=== PATIENT | female | born 1965 | race Caucasian/White ===

== ENCOUNTER 2017-01-16 10:35 | Inpatient (IN) | payer MEDICARE, MEDICAID ==
[~2017-01-16] VITALS: Ht 167.6 cm; Wt 41.2 kg
--- NOTE | ~2017-01-16 | NDGEN ---
PATIENT'S NAME: VERONICA FREITAS [facility] AGE: 51 Y [address] ROOM: [address] [address] [place] [facility] [place]: 01/17/2017 Neurodiagnostics DISCHARGE DATE: FAMILY PHYSICIAN: PHYSICIAN, NO ATTENDING PHYSICIAN: CHAY ALVARADO PROCEDURE: ELECTROENCEPHALOGRAM DATE OF PROCEDURE: 01/19/2017 10:25am TYPE OF STUDY: EEG. INDICATIONS: This is a 51-year-old patient with a suicidal ideations and likely alcohol intoxication with withdrawal. The patient was confused and poorly compliant with 20-lead EEG which was done with photic stimulation. There was extensive movement artifact throughout much of the 20 minute study especially head movement throughout and frontal lead obscuration was present. However, in posterior and central leads, the background rhythm was best evaluated. There was normal background rhythm of 10 hertz alpha seen in the symmetric leads throughout and remained stable throughout the recording. There was no epileptiform features seen and no seizures were recorded. IMPRESSION: Poor study due to extensive patient movement; however, this is a normal study overall. MD SANJANA CUNNINGHAM/tk /[id number] dtt: 02/03/17 1546 , SURJIT GRANGER dtd: 01/23/17 1056
--- NOTE | ~2017-01-16 | ER ---
PATIENT'S NAME: ADELA FREITAS [facility] AGE: 51 Y [address] ROOM: [place] [address] [place] [facility] [place]: 01/16/2017 ER/Outpatient Report DISCHARGE DATE: FAMILY PHYSICIAN: PHYSICIAN, UNKNOWN ATTENDING PHYSICIAN: CHAY ALVARADO time of arrival: 1035. Time seen: 1037. IDENTIFICATION: A 51-year-old female. CHIEF COMPLAINT: Altered mental status. HISTORY OF PRESENT ILLNESS: The patient is a 51-year-old female who was sent over from [facility] for increasing confusion, not eating or drinking in the last 2 days. She was admitted on 01/14, after being evaluated at [facility] for depression, alcohol abuse, posttraumatic stress, and suicidal ideation. The patient apparently had a head CT according to records, but I do not see an actual report while she was in [place]. I do see medical clearance lab work and then she was taken to [facility] under an EPC from [facility]. She has progressively declined since admission to [facility]. Adela answers an occasional question, her speech is garbled and difficult to understand. So, history is not really obtained from her. ALLERGIES: POSSIBLY TO MORPHINE ACCORDING TO THE PARAMEDICS. ADELA DID CONFIRM THAT, THAT IS TRUE. CURRENT MEDICATIONS: According to Isabel Corral's H and P at [facility], her admit medications include: 1. Keppra 500 mg b.i.d. 2. Neurontin 600 mg daily. 3. Trazodone 200 mg daily. 4. Effexor XR 150 mg daily. Her [facility] medications look to include: 1. Tylenol p.r.n. 2. Mylanta p.r.n. 3. Carmex. 4. Colace. 5. Famotidine p.r.n. 6. Folic acid 1 mg daily. 7. Hydroxyzine p.r.n. 8. Levetiracetam 500 mg b.i.d. PATIENT'S NAME: ADELA FREITAS [facility] AGE: 51 Y [address] ROOM: [place] [address] [place] [facility] [place]: 01/16/2017 ER/Outpatient Report DISCHARGE DATE: FAMILY PHYSICIAN: PHYSICIAN, UNKNOWN ATTENDING PHYSICIAN: CHAY ALVARADO 9. Lorazepam per alcohol withdrawal scoring and she did receive 1 mg p.o. this morning. 10. Milk of magnesia. 11. Bacitracin p.r.n. 12. Pantoprazole 40 mg daily. 13. Sudafed p.r.n. 14. Thiamine 100 mg daily. 15. She received a dose on the and I believe again on the . 16. Cepastat throat lozenges p.r.n. MEDICAL PROBLEMS: Seizure disorder with history of withdrawal seizures, possible history of traumatic brain injury, depression, alcohol abuse, PTSD. SOCIAL HISTORY: I believe, the patient is [place] but I am unable to confirm that with her. Tobacco use: Records reflect a history of one pack per day. Alcohol use: Daily, but I am unable to quantify how much. Her last drink was on the . Drug use: Denies. FAMILY HISTORY: Positive for heart disease according to records. REVIEW OF SYSTEMS: Unable to obtain from the patient. PHYSICAL EXAMINATION: VITAL SIGNS: Weight 41.6 kg. Blood pressure 124/88, pulse 90, respirations 14, temp 96.9, sats 100% on room air. GENERAL: A 51-year-old female, in no acute distress. The patient is cachectic and appears much older than her stated age. HEENT: Head: Normocephalic, atraumatic. Ears: TMs translucent both ears. Eyes: Pupils equal and reactive to light and accommodation. Extraocular movements intact. Nose: Mucosa pink. No lesions or drainage. Mouth: No lesions. Pharynx benign. NECK: Supple. No lymphadenopathy. No thyromegaly. No JVD. LUNGS: Clear to auscultation. Breath sounds are equal. No rhonchi, wheezes, or rales. HEART: Regular rate and rhythm. No murmur, rub, or gallop. ABDOMEN: Bowel sounds present. Soft, nondistended. No hepatosplenomegaly. PATIENT'S NAME: ADELA FREITAS [facility] AGE: 51 Y [address] ROOM: [place] [address] [place] [facility] [place]: 01/16/2017 ER/Outpatient Report DISCHARGE DATE: FAMILY PHYSICIAN: PHYSICIAN, UNKNOWN ATTENDING PHYSICIAN: CHAY ALVARADO No palpable masses. Nontender. SKIN: [place], warm, and dry. No lesions or rashes noted. NEURO: The patient is alert, but she is not oriented to person, place, or time. Cranial nerves 2 through 12 grossly intact. Motor strength 5/5 throughout. Sensation appears to be intact to light touch. The patient has a fine tremor. The other thing she has is extremely dry skin, her mucous membranes are dry, her skin turgor is abnormal. Records from [facility], [facility] were reviewed. LABORATORY DATA: Labs here: Hemoglobin 13.5, hematocrit 39.1, platelets 171, white count 5.8. INR 1.0. Ammonia level less than 10. She had a chemistry panel done this morning at 0742; sodium 135, potassium 3.2, chloride 96, CO2 of 24, BUN 21, creatinine 0.6, blood sugar 83, liver enzymes normal. GGT 570. Phenytoin 0.7, vitamin B12 1178. Folate 93.8. Labs from [facility] 01/14/2017; salicylate level 2.5. Hemoglobin at that time 14.6, hematocrit 40.5, platelets 186, white count 5.9. Free T4 1.22. test was negative. Sodium 132, potassium 3.1, chloride 91, CO2 24, BUN 18, creatinine 0.7, blood sugar 87. Liver enzymes normal. Magnesium 1.9. Dilantin 0.6, acetaminophen less than 2, alcohol level 0.004. TSH 2.800. EKG; normal sinus rhythm at 94 beats per minute. No acute ST elevation or depression and that was from the . UA at that time was negative and urine drug screen on the was also negative. Patient reportedly had a negative head CT. UA was ordered today, but not obtained while she was in the emergency room. CT of the head without contrast; mild to moderate atrophy greater than expected for age, otherwise, negative per Dr. Parisi, radiologist. IMPRESSION AND PLAN: 1. Altered mental status. 2. Alcohol withdrawal. 3. History of seizures including alcohol withdrawal seizures, currently on Keppra. 4. Depression with suicidal ideation. The patient did state she is still actively suicidal. 5. Hypokalemia. 6. Plan for admission per Dr. Alvarado for alcohol detox and further evaluation of altered mental status. The patient needs to be a one-on-one for suicidal precautions and patient remained hemodynamically stable throughout her stay here in the emergency room and was admitted to the PATIENT'S NAME: ADELA FREITAS [facility] AGE: 51 Y [address] ROOM: [address] [address] [place] [facility] [place] DATE: 01/16/2017 ER/Outpatient Report DISCHARGE DATE: FAMILY PHYSICIAN: PHYSICIAN, UNKNOWN ATTENDING PHYSICIAN: CHAY ALVARADO floor at 1232 with blood pressure 113/72, pulse 81, respirations 20, temperature 98, and saturations 100% on room air. KENDRA CHRISTIANSON MD CAR/modl /[id number] d: 01/17/1750 t: 01/22/17 1511, OUTPATIENT REPORT
--- NOTE | ~2017-01-16 | HP ---
PATIENT'S NAME: NAVIN FREITASI Joe [facility] AGE: 51 Y [address] ROOM: [address] [address] [place]: [facility] [place] ADMIT DATE: 01/16/2017 History & Physical DISCHARGE DATE: FAMILY PHYSICIAN: PHYSICIAN, UNKNOWN ATTENDING PHYSICIAN: CHAY ALVARADO DATE OF SERVICE: CHIEF COMPLAINT: Suicidal ideation and history of alcohol use disorder and history of seizure disorder and decreased oral intake. HISTORY OF PRESENT ILLNESS: This is a 51-year-old female transferred here from [facility] for higher level of care for the concern of alcohol withdrawal and seizure disorder as well as depression with suicidal ideation and decreased oral intake. The patient currently does not want to speak and is a very poor historian. She is alert and oriented x3, but due to her underlying depression, the patient is a very poor historian and does not really give me much information about why she is here or how she is feeling. Based on what I could get from the ER physician where she got the sign-out from [facility], the story is that the patient has been staying at [facility] because of suicidal ideation, and she also had a history of alcohol use disorder. It is not clear when was the last drink because the patient would not tell us the answer, but she also has a history of a seizure disorder, not sure when was the last time she had a seizure. Because of the decreased oral intake and concern for alcohol withdrawal and seizure disorder, the patient was sent over here for higher level of care. On my examination, the patient looks dry and dehydrated and is not in distress. There is no finding to suggest withdrawal at the moment. The patient is not hungry and does not want to eat or take any oral pills at the moment. She does accept to give her IV fluids. No further history could be obtained from the patient given that the patient does not like to talk and refused to answer any questions also. REVIEW OF SYSTEMS: As mentioned in the history of present illness. All other systems reviewed and negative except those mentioned in the history of present illness. PAST MEDICAL HISTORY: 1. Major depressive disorder. 2. Alcohol use disorder. 3. Posttraumatic stress disorder. 4. Seizure disorder. 5. Multiple psychiatric admissions in the past for suicidal ideation and attempts at [facility]. [facility]: [facility]GE[facility] 51 Y [address] ROOM: [place] [address] LOCATION: [facility] [place] ADMIT DATE: 01/16/2017 History & Physical DISCHARGE DATE: FAMILY PHYSICIAN: PHYSICIAN, JAKOB ATTENDING PHYSICIAN: CHAY ALVARADO ALLERGIES: NO KNOWN DRUG ALLERGIES. HOME MEDICATIONS: Currently is being reconciled. SOCIAL HISTORY: Cannot be obtained from the patient given that she does not want to talk right now. Based on the records from [facility], she denies any alcohol or any illegal drug use. The patient is described as alcohol use disorder patient, however there is no documentation about how much and how often in the chart. FAMILY HISTORY: Patient does not answer questions and does not want to talk. Based on the medical records from [facility], I could not find information about her parents. PAST SURGICAL HISTORY: The patient does not answer questions and does not want to talk. Could not find any documentation about past surgical history from the [facility] records. PHYSICAL EXAMINATION: VITAL SIGNS: At the time of my dictation, temperature 95.1, heart rate 81, respirations 20, blood pressure 101/38, saturation 99% on room air. Pain 0/10. GENERAL APPEARANCE: The patient looks frail and cachectic and appears to be older than her stated age. In no acute distress. Patient does not answer questions most of the time, but she is alert and she is oriented x3. She just does not want to talk. HEENT: Pupils are equally round and reactive to light. Extraocular muscles intact. Anicteric sclerae. Nasal turbinates are normal bilaterally. Dry oral mucosa. No oral thrush. NECK: No JVD. No cervical lymphadenopathy. No neck stiffness. CARDIOVASCULAR: Regular rate and rhythm. Normal S1, S2. No murmur. No rubs, no gallops. RESPIRATORY: Clear. ABDOMEN: Soft, nontender, nondistended. Normal bowel sounds. No hepatosplenomegaly. EXTREMITIES: No edema in upper or lower extremities. NEUROLOGIC: Cannot perform a full neurological assessment given that the patient does not want to follow commands and does not want to talk. However, grossly nonfocal as the patient is alert and oriented x3. PATIENT'S NAME: VERONICA FREITAS [facility] AGE: 51 Y [address] ROOM: [place] [id number] LOCATION: [facility] [place] ADMIT DATE: 01/16/2017 History & Physical DISCHARGE DATE: FAMILY PHYSICIAN: PHYSICIAN, UNKNOWN ATTENDING PHYSICIAN: CHAY ALVARADO SKIN: No ulcer. No rash. No cyanosis. MUSCULOSKELETAL: No joint pain. No muscle pain. Range of motion intact. GENITOURINARY: Not examined given that it is not related to this admission. LABORATORY DATA: Ammonia less than 10. White blood cell 5.8, hemoglobin 13.5, hematocrit 39.1, MCV 99.2, platelet 171. Glucose 83, BUN 21, creatinine 0.6, sodium 135, potassium 3.2, chloride 96, CO2 24, calcium 9.4. Total protein 7.0, albumin 3.3, AST 239, ALT 36, alkaline phosphatase 116, total bilirubin 1. Anion gap 18.2, globulin 3.7, GFR more than 60. Phenytoin 0.7, INR 1.0, PTT 25. GGT 570. Vitamin B12 1178. Folic acid 93.8. IMAGING STUDY: CT of the brain without contrast on admission showed no acute finding. Cerebral atrophy. No hemorrhage. No mass. No fracture. ASSESSMENT/PLAN: 1. Major depressive disorder with suicidal ideation: Continue with suicide precautions. One-to-one sitter in the room at all times. Currently, her medication list is being reconciled. We will continue with antidepressant medication. If she is on any at home and at [facility]. Once the patient goes back to [facility], over there, they can continue with depression and suicidal treatment. 2. Regarding her history of alcohol use disorder: Currently, the CIWA score is 0. There is no asterixis. It is not clear when was the last drink because the patient does not answer my questions right now. I will put her on the CIWA protocol and give her p.o. Ativan p.r.n. according to the CIWA score. 3. Regarding her history of seizure disorder: Continue home medication. It is believed that she is on Keppra, but currently the medication list is being reconciled. I will put her on IV Ativan 2 mg q.5 minutes p.r.n. if she goes into active seizure. There is no need to check EEG because she never had a documented or witnessed seizure therefore I do not think it is cost effective at this point. I will get a prolactin to be added on to today's lab. The patient will be on seizure precautions. 4. Regarding her decreased oral intake: I will give her IV fluids with D5 water with normal saline and 20 mEq of potassium chloride for maintenance for hydration. She does not want to take oral potassium therefore I will give her the potassium with IV fluids. Encourage oral intake. She can be on a regular diet. I will consult Nutrition. Give her Ensure one can t.i.d. with meals. 5. Agitation: I will put her on delirium protocol. I will also check UA again. It was negative from the [facility] few days ago, but I want to check again to make sure we do not miss anything. I will also check another urine drug screen including alcohol level and Tylenol and PATIENT'S NAME: VERONICA FREITAS [facility] AGE: 51 Y [address] ROOM: [place] [address] LOCATION: [facility] [place] ADMIT DATE: 01/16/2017 History & Physical DISCHARGE DATE: FAMILY PHYSICIAN: PHYSICIAN, UNKNOWN ATTENDING PHYSICIAN: CHAY ALVARADO aspirin levels. Those were checked at [facility], but the reason why they sent the patient here is because of agitation therefore I want to make sure we can have another urine drug screen and also alcohol and Tylenol and aspirin levels. 6. Further plan depends on clinical course. Time spent on the day of admission 35 minutes including chart review, interviewing and examining the patient, and addressing all the questions and concerns that the patient had. I also went over the plan of care with the nurse. CHAY ALVARADO MD CC/modl /[id number] D: T: HISTORY & PHYSICAL
--- NOTE | ~2017-01-16 | CON ---
PATIENT'S NAME: VERONICA FREITAS [facility] AGE: 51 Y [address] ROOM: [id number] [place], [place] [address] [place] [facility] [place]: 01/17/2017 Consultation DISCHARGE DATE: FAMILY PHYSICIAN: PHYSICIAN, NO ATTENDING PHYSICIAN: CHAY ALVARADO REFERRING PHYSICIAN: DIDI Arredondo HISTORY OF PRESENT ILLNESS: This 51-year-old lady is referred for rehab evaluation and admission, was admitted to [facility] on 01/17/2017, transferred from [facility] for further care. She was status post alcohol withdrawal, depression with confusion and possible seizure disorder, as well as suicidal ideation lately with decreased food intake also. She is not able to tell me much during my examination. Practically, she answers every other question with (I do not know). She is always, if left alone, curled on the left side. Alert, not oriented to place, time, person, and status really. She can follow instructions, but she is very much unable to follow multiple stage instructions, but she can follow one or two stage instructions. She denied having any visual difficulty. No dizziness. She can comprehend, but usually will require two or three times repetition before she will act once. She avoided eye contact throughout my examination and she kept answering practically to most of my questions by "I do not know." She feels that her stomach is upset on and off. No vomiting at the present time. She reports she has good bowel and bladder control. She admits smoking one pack a day. She admits to drinking and she is not specifically tell me how much, but she does drink regularly and hard liquor. She barely is able to stay in contact with me. If left alone, she will curl again to the left side and close her eyes. She could move all four. Muscle strength throughout is about 4- to 4/5. Neurologically, she is intact. Deep tendon reflexes present and equal. She has good bowel and bladder control. Sensation is within normal limits. PHYSICAL EXAMINATION: VITAL SIGNS: Blood pressure 111/76, temperature 97.7, pulse 88, respirations 16. She is 5 feet 6 inches tall and weighs 141.6 kg. LUNGS: Clear clinically. HEART: Regular sinus rhythm. ABDOMEN: Soft. HEENT: Her voice is clear and not wet. Soft palate and tongue are moving symmetrical. There is no visual cut and/or facial droop that I could detect. Her voice remained clear throughout the exam. PATIENT'S NAME: VERONICA FREITAS [facility] AGE: 51 Y [address] ROOM: [address] [place], [place] [address] [place] [facility] [place]: 01/17/2017 Consultation DISCHARGE DATE: FAMILY PHYSICIAN: PHYSICIAN, NERY ATTENDING PHYSICIAN: CHAY ALVARADO She is on the following medications. 1. Tylenol. 2. Mylanta. 3. NaCl 0.9%. 4. Seroquel. 5. Ativan. 6. Lovenox. 7. Effexor. 8. Keppra. 9. Gabapentin. 10. Pepcid. 11. Mag oxide 400. 12. Haldol. 13. Lopressor. 14. Catapres. 15. Folic acid. 16. Thiamine. 17. Multivitamin. This lady could ambulate 200 feet x1 and 150 x1 with minimum rehabilitation assistant of two handheld, realistically only for stability. I feel that this lady is doing well. However, she requires to have things puts in good order for her, so she can recover. I would suggest a neuro-psych evaluation for her and also I will caution that she is at high risk of falling and needs hands-on always. She needs also not to drive until she is re-evaluated. Probably for the time being while placement is seek to put her in skilled unit for awhile and placement should be looked for safety. I will continue to follow alongside with you. Thank you for this referral. I did explain all what I just dictated to her, she verbalized understanding. MD PANFILO SAUCEDA/tk /[id number] P d: 01/23/17 1214 t: 01/26/17 0912, CONSULTATION REPORT
--- NOTE | ~2017-01-16 | DS ---
PATIENT'S NAME: [facility] AGE: 51 Y [address] ROOM: [id number] [place], [place] [address] LOCATION: [facility] ADMIT DATE: 01/17/2017 Discharge Summary DISCHARGE DATE: 02/05/2017 FAMILY PHYSICIAN: PHYSICIAN, NO ATTENDING PHYSICIAN: Alek Adnres FINAL DIAGNOSES: 1. Wernicke's encephalopathy. 2. Alcohol abuse and dependence. 3. Severe protein-calorie malnutrition. 4. Major depressive disorder. 5. Posttraumatic stress disorder. 6. Seizure disorder. 7. Deconditioning. HISTORY OF PRESENT ILLNESS: Please see the admission history and physical for details. In short, the patient was admitted from [facility] after she had presented there for depression. On admission, she was noted to be having significant withdrawal symptoms. LABORATORY DATA: On admit, sodium 135, it remained stable, it was 142, most prior to discharge, potassium on admission was 3.2, got as low as 3, most prior discharge 3.9, CO2 on admission was 24, BUN on admission was 21, discharge 14, creatinine on admission was 0.6, discharge 0.5, alk phos on admission was 116, AST 39, ALT 36, GGT 57, Dilantin on admission was 0.7, prealbumin on admission was 10. Her salicylate normal, on admission was less than 2.8. Vitamin B12 was 1178, folate 93.8. TSH 3.69. On admission, white blood cell count 5.8, hemoglobin 13.5, hematocrit 39.1, platelet count 171, most prior to discharge, her hemoglobin was 11.7, pro-time on admission was 10.9 with an INR of 1. Procalcitonin on admission was 0.19. Urinalysis on admission was positive for nitrites, she had 20-50 whites. X-RAY DATA: CT scan of the head done on admission did not show any acute changes. Repeat CT scan of the head with contrast did not show any significant change. HOSPITAL COURSE: The patient was admitted for acute mental status changes. It was felt to be alcohol withdrawal. She was admitted to the hospital at [facility]. She was evaluated for infection. She was given D5 saline. She was also given Ativan for withdrawal. She was also given the appropriate vitamin replacement. She was put on the acute delirium protocol and was treated according to that as well as the [facility] protocol. CT scans were negative. It was felt that she was at severe nutritional compromise; so, the dietitian did see her. It was felt that she probably had Wernicke's encephalopathy. She was given IV thiamine for a total of 7 days. During this PATIENT'S NAME: [facility]ICA [facility] AGE: 51 Y [address] ROOM: [place] [address] LOCATION: [facility] ADMIT DATE: 01/17/2017 Discharge Summary DISCHARGE DATE: 02/05/2017 FAMILY PHYSICIAN: PHYSICIAN, NERY ATTENDING PHYSICIAN: Alek Andres timeframe, she had altering levels of alertness. There was concern about if she would be able to return to [facility]. She was unfortunately not able to walk independently and did require significant help. PT, OT did continue to work with her. Dr. Rodrigues did see her. It was felt that she would not be able to return to [facility]. We did start looking into other options. Because of her condition, it was very difficult to get her placed. We did work toward getting her temporary guardianship as it was felt that she did not have the capacity to make her own decisions. Once we were able to get the guardianship, she was able to be discharged to [facility]. DISCHARGE INSTRUCTIONS: She is discharged. She is to have diet as tolerated. She is to have health supplement as needed. She have PT, OT, and Speech therapy. MEDICATIONS: 1. Mag oxide 400 mg daily. 2. Megace 800 mg daily to try and stimulate her appetite. 3. Theragran 1 tablet daily. 4. Nicotine patch 14 mg daily. 5. Potassium 20 mEq twice daily. 6. Effexor XR 150 mg daily. 7. Seroquel 12.5 mg twice daily to hold if she is oversedated. 8. Thiamine 100 mg daily. 9. Tylenol 650 mg every 4 hours as needed for headache. 10. Mylanta 30 mL every 6 hours as needed for indigestion. PROGNOSIS: Overall, prognosis at discharge was fair. NOAH TOLENTINO MD LAW/modl /[id number] d: 02/06/17 0058 t: 02/18/17 1642, DISCHARGE SUMMARY
[~2017-01-16 10:35] MED LIST: EFFEXOR XR150 MG PO; KEPPRA500 MG PO; NEURONTIN300 MG PO; TRAZODONE HCL100 MG PO
[2017-01-16 11:39] LABS: BASOPHIL % 0.5 %; HEMATOCRIT 39.1 % (33.0-46.0); HEMOGLOBIN 13.5 g/dL (10.0-15.0); IMMATURE GRANULOCYTE % 0.5 %; LYMPHOCYTE # 1.6 K/uL (0.8-4.0); LYMPHOCYTE % 26.6 %; MCH 34.3 pg (27.0-34.0); MCHC 34.5 gm/dL (32.0-36.5); MCV 99.2 fl (83.0-98.0); MONOCYTE # 0.6 K/uL (0.0-1.0); MONOCYTE % 10.1 %; NEUTROPHIL # (ANC) 3.6 K/uL (1.8-7.8); NEUTROPHIL % 62.3 %; NRBC % 0.3 /100WBC (0-0.00); PLATELET COUNT 171 K/uL (150-450); RBC 3.94 M/uL (3.50-5.50); RDW-CV 11.9 % (11.9-14.6); WBC 5.8 K/uL (4.0-11.0)
[2017-01-16 11:49] LABS: PROTIME 10.9 SECONDS (9.6-11.1); PTT 25 SECONDS (25-32)
--- NOTE | 2017-01-16 13:43 | NUR ---
Pt is 51 y/o female admit for altered mental status/suicidal ideations/ alcohol withdrawal for hospitalist. PT is very lethargic and occasionally does not answer questions appropriately when she is awake enough to answer. Pt has a staff member sitting with her at all times currently. Came from [facility]. Hx htn,hypercholest,COPD,SOB,cough,gerd,anxiety,major depressive disorder, PTSD,suicidal ideations/attempt,ETOH abuse. Pt lives at home with her according to an H&P on her chart. Possible hx traumatic brain injury. Unable to ask pt about this at this time. Allergy to morphine. Red and yellow bracelet on.
--- NOTE | 2017-01-16 18:21 | NUR ---
Significant Event: Patient is on suicide precautions with a 1:1 sitter. Oriented to self but disoriented to time/place. When asked if she had thoughts of harming herself or others, patient stated "shove it up your ass." Patient later around 1615 did ask where she was and was told where she was and that she came over from [facility] for dehydration. When asked if she needed anything she stated that she was just "fucking cold". Patient then went back to sleep. Patient has not been up to the bathroom since arrival at 1250. Did start IV fluids per orders. Patient has not been alert enough to eat or drink anything or take any pills. Follow up: Continue to monitor.
[2017-01-16 22:25] LABS: BLOOD URINE 10 /UL (NEGATIVE); GLUCOSE URINE NEGATIVE (NEGATIVE); KETONE URINE 50 mg/dL (NEGATIVE); LEUKOCYTES URINE 500 /UL (NEGATIVE); NITRITE URINE POSITIVE (NEGATIVE); PROTEIN URINE 30 mg/dL (NEGATIVE); SPEC GRAVITY URINE 1.025 (1.003-1.035); UROBILINOGEN URINE 4 mg/dL (NORMAL)
[2017-01-16 22:43] LABS: COLOR URINE AMBER (YELLOW); TURBIDITY URINE 1+ (CLEAR)
[2017-01-16 22:44] LABS: RBC URINE 0-2 #/HPF (NEGATIVE); WBC URINE 20-50 #/HPF (NEGATIVE)
[2017-01-16 22:45] LABS: AMORPHOUS URINE 1+ (NEGATIVE); BACTERIA URINE FEW (NEGATIVE); EPITHELIAL URINE 20-50 #/HPF (NEGATIVE); MUCUS URINE 3+ (NEGATIVE)
[2017-01-16 22:56] LABS: BARBITURATE NEGATIVE (NEGATIVE); COCAINE NEGATIVE (NEGATIVE); OPIATES NEGATIVE (NEGATIVE)
[2017-01-16 22:58] LABS: AMPHETAMINE NEGATIVE (NEGATIVE)
--- NOTE | 2017-01-17 04:53 | NUR ---
Significant Event: Pt very withdrawn. Quiet and doesn't answer most questions. Beginning of shift the only thing she said was "I'm cold". Second assessment pts stomach hurt, pt voided and has been comfortable since. VSS. afebrile. Refused to eat anything all shift. ONly drank about 200mls H2o and that was with encouragement. Two assist to bedside commode with gait belt and she is very unsteady. Continue 1:1 monitoring. Follow up:
[2017-01-17 05:35] LABS: BLOOD UREA NITROGEN 16 mg/dL (6-24); CALCIUM 8.5 mg/dL (8.5-10.5); CHLORIDE 107 mMol/L (96-110); CO2 21 mMol/L (22-32); CREATININE 0.5 mg/dL (0.5-1.1); ESTIMATED GFR (MDRD EQUATION) > 60
[2017-01-17 05:44] LABS: SODIUM 142 mMol/L (135-145)
--- NOTE | 2017-01-17 13:42 | NUR ---
CONSULT FOR DECREASED APPETITE RECEIVED. FULL NUTRITION ASSESSMENT DONE ON 01/16, [facility] ATTEMPTED TO VISIT PT YESTERDAY BUT HAS SITTER AND WAS TOLD NOT APPROPRIATE TO VISIT. REFUSED X3 MEALS. REFUSED MEALS AT TIMES OVER AT [facility]. ALCOHOL WITHDRAWAL, LETHARGIC, NOT ALERT ENOUGH TO EAT PER SHIFT REPORT. SPOKE TO SITTER THIS AFTERNOON, PT HAD 50% OF BREAKFAST THIS MORNING AND NOTHING FOR LUNCH. DID TRY ALL KINDS OF ENSURE YESTERDAY, LIKES ENSURE COMPACT BETTER. WILL CHANGE ENSURE ENLIVE TO ENSURE COMPACT BID AND MAGIC CUP ONCE DAILY. IF ENTERAL NUTRITION IS DESIRED, RECOMMEND JEVITY 1.5 AT 45ML/HR WITH 35ML/HR WATER FLUSHES TO PROVIDE 1620 KCAL, 69 GRAMS PROTEIN, 821ML FREE WATER. WILL FOLLOW.
--- NOTE | 2017-01-17 17:34 | NUR ---
Oriented to self. IV to LW infusing w/out complication. Tolerating regular diet well. Drinking well, though needs encouragement. Up w/1-2 assist, GB, walker. Very unsteady and weak. Had fall this shift. Jumped up to go to BR. Can't bear own weight well. Small slight abrasion to R)elbow. MD notified.
[2017-01-17 21:55] LABS: MAGNESIUM 1.8 mg/dL (1.3-2.6); POTASSIUM 3.3 mMol/L (3.7-5.1)
--- NOTE | 2017-01-18 04:36 | NUR ---
Significant Event: Pt oriented to self only. Confused. Follows few simple commands. Up with two assist to BSC. Very weak. WILLEM this morning. CT scan last night. K+ IV replacement. Banana Bag hanging. Cont on 1:1 monitoring. Possible Dobhoff placement in morning if pt not eating. Follow up: Cont to monitor
[2017-01-18 05:52] LABS: BASOPHIL % 0.7 %; EOSINOPHIL % 0.5 %; HEMATOCRIT 32.2 % (33.0-46.0); IMMATURE GRANULOCYTE % 0.5 %; LYMPHOCYTE # 2.1 K/uL (0.8-4.0); LYMPHOCYTE % 47.4 %; MCH 34.3 pg (27.0-34.0); MCHC 34.2 gm/dL (32.0-36.5); MCV 100.3 fl (83.0-98.0); MONOCYTE # 0.4 K/uL (0.0-1.0); MONOCYTE % 8.7 %; MPV 10.3 fl (9.4-12.4); NEUTROPHIL # (ANC) 1.8 K/uL (1.8-7.8); NEUTROPHIL % 42.2 %; NRBC % 0.9 /100WBC (0-0.00); PLATELET COUNT 177 K/uL (150-450); RBC 3.21 M/uL (3.50-5.50); RDW-CV 12.3 % (11.9-14.6); WBC 4.4 K/uL (4.0-11.0)
[2017-01-18 06:14] LABS: ALBUMIN 2.4 gm/dL (3.5-5.0); ALK PHOS 81 IU/L (33-138); ALT 38 IU/L (12-78); ANION GAP 13.5 (10.0-19.0); AST 54 IU/L (10-40); CHLORIDE 112 mMol/L (96-110); CO2 21 mMol/L (22-32); CREATININE 0.5 mg/dL (0.5-1.1); ESTIMATED GFR (MDRD EQUATION) > 60; MAGNESIUM 2.3 mg/dL (1.3-2.6); POTASSIUM 3.5 mMol/L (3.7-5.1); SODIUM 143 mMol/L (135-145); TOTAL PROTEIN 5.3 g/dL (6.0-8.4)
[2017-01-18 06:17] LABS: BLOOD UREA NITROGEN 7 mg/dL (6-24); TOTAL BILIRUBIN 0.4 mg/dL (0.0-1.5)
[2017-01-18 06:18] LABS: PHOSPHORUS 1.6 mg/dL (2.5-4.9)
--- NOTE | 2017-01-18 17:29 | NUR ---
Oriented to self, place, and month, at times. Disorganized thoughts. IV Thiamine treatment. KPHos IV to LAC and LFA IV w/IVF. Tolerating regular diet. Needs assist ordering. Encourage sips. Voiding well. BM x2 today. VSS, afebrile, denies N/V/D and pain.
--- NOTE | 2017-01-19 05:27 | NUR ---
Significant Event: Pt oriented to self, occasionally to place. Ciwa scoring. 1:1 for alcohol detox. Fixated on having a beer. Refused supper, eating some toast early this morning. Banana bag infusing now. VSS, afebrile. Follow up: Needs encouraged to eat and drink.
[2017-01-19 05:50] LABS: ALBUMIN 2.6 gm/dL (3.5-5.0); CALCIUM 8.4 mg/dL (8.5-10.5); CHLORIDE 106 mMol/L (96-110); CO2 22 mMol/L (22-32); CREATININE 0.5 mg/dL (0.5-1.1); ESTIMATED GFR (MDRD EQUATION) > 60; PHOSPHORUS 2.6 mg/dL (2.5-4.9); SODIUM 140 mMol/L (135-145)
[2017-01-19 05:51] LABS: ANION GAP 15.2 (10.0-19.0); BLOOD UREA NITROGEN 2 mg/dL (6-24); MAGNESIUM 2.3 mg/dL (1.3-2.6); POTASSIUM 3.2 mMol/L (3.7-5.1)
--- NOTE | 2017-01-19 13:15 | NUR ---
Placed a phone call to [facility] and spoke to Noa regarding patient. [facility] is planning on the patient returning there once medically stable. Explained that patient needs 3 more doses of medication so the soonest she would be ready for discharge would be tomorrow if medically cleared. [facility] understands and requests to keep them posted on potential discharge.
--- NOTE | 2017-01-19 16:38 | NUR ---
Significant Event: Took over cares at 1245. Amb in pathak with PT and 2 assist, very weak. Alert to person and place, thought it was 2000. Continues to be on 1:1 supervision d/t hx of suicidial ideations. VS stable. Drowsy. Follow up:
--- NOTE | 2017-01-20 06:47 | NUR ---
PATIENT IS LATHARGIC RESPONDS IN QUITE VOICE WHEN SPOKEN TO. PATIENT IS ORIENTED TO SELF ONLY. CONTINUES TO ASK FOR BEER. REFUSED SUPPER. ONE ASSIST TO AMBULATE TO COMMODE. REFUSED TO WALK IN HALLS. BANANA BAG INFUSING. VITAL SIGNS WNL. AFEBRILE. ONE 1:1 SUPERVISION DUE TO SUCIDIAL IDEATIONS. J
--- NOTE | 2017-01-20 13:26 | NUR ---
A-NUTRITION F/U 1:1 SUPERVISION. LABS: NA 140, K+ 3.2, LGU 105, BUN 2, VICE CHAIR 0.5, ALB 2.6 01/18 PREALB 10.0 DIET RX: REGULAR. HAS REFUSED MEALS SINCE 01/18 BREAKFAST. ENSURE COMPACT BID AND MAGIC CUP ONCE DAILY BEING OFFERED. EST NUTR NEEDS: 4334-9782 KCALS AND 59-71 GM PROTEIN D-AT NUTRITION RISK W/INADEQUATE ORAL INTAKE R/T DECREASED APPETITE, ALTERED MENTAL STATUS AEB CHART REVIEW, INTAKE RECORDS, AND BMI <18 I-1)CONTINUE W/ENSURE COMPACT BID AND MAGIC CUP QD 2)IF EN DESIRED, SEE 01/17 NOTE FOR RECOMMENDATIONS M/E-GOAL: PO INTAKE 25-50% BY NEXT F/U 1)F/U PO INTAKE, SUPPLEMENT, AND POC (3-5 DAYS) 2)ASSIST NEEDED
--- NOTE | 2017-01-20 16:50 | NUR ---
A&O X2 -LETHARGIC ANSWERED SOME QUESTIONS APPROPRIATELY. 2PA VERY WEAK. NOT EATING OR DRINKING. REQUESTING BEER AND SMOKES. IV TO L HAND SL IV TO L FA NS@75. VSS 100'S-130'S. HR 70'S. RA. AFEBRILE. ROSHAN C/O PAIN. DOES MAKE CONFUSED STATEMENTS. C/O HEAD ACHE/FULLNESS.PLAN IS BACK TO [facility] WHEN MEDICALLY STABLE.
--- NOTE | 2017-01-21 03:59 | NUR ---
Significant Event:pt is oriented to self only. has 1:1 sitter for suicidal ideations but denies plan or desire to kill herself at this time. ciwa score of 5 most of shift. pt refuses food or beverages but asks repeatedly for beer. pt slept most of the night with c/o seeing people. pt is a 1 assist-very unsteady on feet. pt is epc'd and will return to [facility] when medically cleared. iv's to l hand is very sluggish, iv to L FA has NS @ 75ml/hr. Follow up:cntinue to monitor ciwa score
--- NOTE | 2017-01-21 15:57 | NUR ---
Phone call to [facility] at 1230 today to see what their parameters are regarding patients with walkers. I explained to Noa at the Access Center that patient is currently having to use a walker and I just need guidance from them on whether or not she can return to them if walker is needed. Per Noa that is a decision that is made during the nurse to nurse call. They have had residents that have needed a walker for ambulating, but to her knowledge the patient has to be able to ambulate with walker and no additional assistance. I will let Dr. Gilbert and Abbe Logan know this and I will talk with therapy to get an update on patient's progress with her mobility. Will keep [facility] updated on patient's progress.
--- NOTE | 2017-01-21 16:23 | NUR ---
Is disoriented to time.She knows shes in the hospital.Has IV in Lt.forearm & SL in Lt.wrist.Not eating or drinking very well.Is voiding & had loose brown stool today.Has been up with 2 assists,walker & gait belt.Is very weak & unsteaady on feet. Having some visual hallucinations & tremors.Had Tylenol at 1430 for headache & some Mylanta.
--- NOTE | 2017-01-22 03:08 | NUR ---
Significant Event: PATIENT REMAINS ON 1:1. ALERT TO PERSON. VITAL SIGNS WNL AFBRILE ON RA. REFUSES PNEUMATICS. REGULAR DIET REFUSED DINNER HAD SIPS OF TEA THROUGHOUT THE EVENING. 2 ASSIST GAIT BELT WALKER TO BATHROOM AND WALKED CIWA SCORE AT 8 GAVE I MG ATIVAN AT 0230. SHE CONTINUES TO YELL FOR MARC HER SON AND ASK FOR BEER REGULARLY. ALSO STATES SHE SEES A BABY IN HER ROOM AND REACHES OUT TO GET IT. IV TO L) FORARM RUNNING AT 75ML/HR. IN RAYMOND X1. Follow up:
--- NOTE | 2017-01-22 16:45 | NUR ---
Patient on 1:1. Ambulated in hallways with PT, 2 assist and gait belt with walker. Alert to person only. VSS, IV to L)FA and L)wrist, both sluggish during flush. Reddened around tape. 1 BM this shift. Tiptoe gait, unsteady. Hallucinating and agitated this AM, gave 1 mg ativan and patient has been able to sleep some this afternoon. Ate breakfast and some lunch. Asks for beer and vodka, converses with corner of room at times. Conversation is nonsensical.
--- NOTE | 2017-01-23 02:23 | NUR ---
I received a call from [facility] [facility], julioibis number [phone]. He was looking to see if we had a patient by the name of Tomas Ayala. I told him yes. The reason he was calling was because the hotel room in which she was EPC'd from, $4500 was found. I guess arounding to Sergeant Medrano, the people at the hotel were saying it was Adela Ayala's money. Sergeant Medrano wanted me to go ask Adela if it was her money. I explained to him that she is confused and drowsny at this time. I told him that I didn't know if she was more alert and oriented during the day or not. He said he would update her file. He said that if I felt comfortable at any point tonight to go ahead and ask her. Sergeant Medrano left a phone number in which he can be reached. [phone]. He said that if he didn't answer you would be prompted to leave a message or the tape cutting machine operator would answer and they would be able to get ahold of him.
--- NOTE | 2017-01-23 07:17 | NUR ---
Significant Event: PT ALERT TO SELF ONLY. VERY CONFUSED AND DISORIENTED TO TIME/PLACE. REGULAR DIET TOLERATED. PIV TO RUE X2. DENIED PAIN THROUGHOUT SHIFT. CIWA @ 17 AT 2230; 2 ATIVAN ADMINISTERED PO. REASSESSMENT CIWA SCORE AT 2330 WAS 4. VSS ON RA. TIP-TOE, SHUFFLING GAIT. USES FWW, WITH GAIT BELT. HEAVY 2 ASSIST. BED ALARM ON 2ND LEVEL. PT WAS ATTEMPTING TO GET OUT OF BED EVERY FEW MINUTES THROUGHOUT SHIFT. SAID SHE NEEDED TO FIX DINNER, TALK TO "YUSEF", NEEDED TO CLEAN DIFFERENT ROOMS, ETC. WAS REDIRECTED AND COOPERATIVE. WOULD GET AGGITATED AT TIMES, BUT WAS COOPERATIVE. STILL NEED TO COLLECT STOOL FOR C-DIFF, NO BM THIS SHIFT. Follow up:
--- NOTE | 2017-01-23 09:43 | NUR ---
A - NUT F/U. ALERT TO SELF. CONFUSED/DISORIENTED. ASKING FOR BEER. NO NEW LABS. WT: 92# BMI: 14.8 MEDS: IVF, SEROQEUL, EFFEXOR, KEPPRA, GABAPENTIN, PEPCID, FOLIC ACID, THIAMINE DIET: PLASTIC ONLY. INTAKE: MOSTLY REF-25% ENSURE COMPACT BID, MAGIC CUP @ L. NEEDS: [id number] KCAL, 59-71 G PRO D - INADEQUATE NUTRIENT INTAKE R/T DECREASED APPETITE, MENTAL STATUS AEB INTAKE RECORD. I - GOAL FOR INCREASED INTAKE BY NEXT ASSESSMENT. IF EN NEEDED SEE 01/17 RECS. PT IS UNABLE TO MEET NEEDS ORALLY AT THIS TIME. WILL CHANGE MAGIC CUP TO ENSURE COMPACT D/T DIET ORDER. M/E - WILL MONITOR INTAKE F/U IN 3-5 DAYS.
--- NOTE | 2017-01-23 17:42 | NUR ---
Is on 15min checks.Has IV.Up with 2 assists & walker.Can not always follow directions.Is very unsteady on feet.Not eating or drinking very well. Occ.visual hallucinations.Is disoriented to time & place.Sleeps alot.
--- NOTE | 2017-01-24 04:23 | NUR ---
SIGNIFICANT EVENT: Patient disoriented - bed alarms at all times, hi/lo bed. Bedrest with BR privileges - 2PA with walker and gaitbelt to ambulate. Regular diet - ate approx 50% of dinner. VSS on RA. Asked several times to go smoke and for a drink of beer, several attempts to get out of bed. Water/tea offered but refused. CDiff test order DC'd, no stool specimen needed at this time. PIV to R) UE infusing NS at 75 mL/hr. Cooperative with cares.
--- NOTE | 2017-01-24 14:24 | NUR ---
Significant Event: Pt denies pain. Confused at all times. Very impulsive this am and kept getting up in chair and walking around in room. Seroquel PO given x1 with some relief. Placed on 1:1 supervision for safety d/t high risk of falls. 2 assist with ambulation d/t weakness. Follow up:
--- NOTE | 2017-01-24 17:15 | NUR ---
Significant Event: Pt remained asleep. Remains a 1:1. Refused lunch tray. Follow up:
--- NOTE | 2017-01-25 03:22 | NUR ---
Significant Event: Patient alert and oriented to self and birthday. Think she is in [place] at school. Asks for beer and cigarettes often. PRN seroquel given at bed time to help patient sleep. Some tremors noted. Attempts to get out of bed. 1:1 sitter in with patient. IV to L) forearm running NS at 75ml. Ate about 50% of supper. Needs verbal cues to eat, and extensive verbal cues to ambulate with walker. 2 person assist. Plan to discharge to [facility] when strong enough. vitals stable. Follow up: Monitor tremors
--- NOTE | 2017-01-25 15:08 | NUR ---
Significant Event: Pt continues on 1:1 supervision. Slightly impulsive this am but mostly cooperative. Had mod tremors this am, did given Seroquel x1. Walked very short distance with PT this pm, sleepy. Confused at times, knows where she is but not what year it is. Up in recliner this afternoon. Follow up:
--- NOTE | 2017-01-25 15:36 | NUR ---
A-NUTRITION F/U CONTINUES ON 1:1 SUPERVISION. SLEEPY; CONFUSED AT TIMES. ASKS FOR BEER. NO NEW LABS OR MEDS DIET RX: PLASTIC ONLY/NO SILVERWARE. PO INTAKE HAS IMPROVED SINCE LAST F/U TO MOSTLY 50%. PT DOES NEED LOTS OF VERBAL CUES TO EAT. ENSURE COMPACT TID W/MEALS. EST NUTR NEEDS: [id number] KCALS AND 59-71 GMP PROTEIN D-AT NUTR. RISK W/INADEQUATE NUTRIENT INTAKE R/T DECREASED APPETITE, MENTAL STATUS AEB INTAKE RECORD. I-CONTINUE W/ENSURE COMPACT TID W/MEALS M/E: GOAL: PO INTAKE >/=50% FOR DURATION OF ADMIT 1)F/U PO INTAKE, SUPPLEMENT, AND POC IN 3-5 DAYS 2)ASSIST NEEDED
--- NOTE | 2017-01-26 03:14 | NUR ---
Significant Event: Alert and oriented. Up ad jose. YASMEEN intermittently to L) FA. Vitals stable and on room air. Tylenol given for headache at shift change. Planning to discharge. today. Follow up: Monitor vitals
--- NOTE | 2017-01-26 03:23 | NUR ---
Significant Event: Patient alert and oriented to self and birthday. Thinks she is at home. Confused at times. Walking better this shift, mostly 1 person assist with help with IV pole. Needs encouragement to eat and drink. NS running at 75 to L) forearm. Tubing chagned. Vitals stable and on room air. Mild tremors noted. CIWA every 4 hours. Takes pills ok. Still in 1:1, supposed to be readdressed this morning. Voiding well. Refused supper. Had some chicken soup later on. Follow up: monitor ciwa
--- NOTE | 2017-01-26 13:39 | NUR ---
LATE ENTRY- January 22- Was asked to make arrangements for patient to be transferred to [facility] since [facility] cannot take her back due to her current issues with ambulating. I spoke to Noa at the [facility] multiple times throughout the day trying to make arrangements for patient to go to [facility]. Noa spoke to her administration at [facility] and they told her that I needed to make the referral to [facility] even though patient had been EPC'd at [facility]. I spoke with Daniela at [facility] and they accepted patient, but [facility] needed the [facility] EPC paperwork changed to reflect the patient was now EPC'd to [facility]. I contacted Sgt. Barahona with the [place] [employer] and explained to him that we need to transfer patient to [facility] for her psychological and medical needs. He drafted new EPC paperwork and faxed that to me here and to [facility]. In the meantime I received a call from Noa at [facility] and she informed me that the EPC had been dropped. I was unaware of this and met with the nursing staff on the floor and no one was aware that the EPC had been dropped. I had spoke to [facility] multiple times throughout the week and had not once been told of the EPC status. Noa said that I need to contact this number and speak to someone in [facility] [phone]. I called this number at approximately 1310 and it was to [facility]. Margo, the person I needed to talk to was at lunch so I left her a message asking her to call me. I contacted Margo at the [facility] office again at 1945 and spoke to Margo. She states that the [facility] EPC was dropped because of the patient medical needs and not knowing how long she would be in the hospital. I then contacted Daniela at [facility] and informed her that the EPC was dropped, but [facility] would be in agreement with the patient being transported there and they would request that [facility] Police assess patient and determine if she still needs to be EPC'd. Daniela with [facility] states they are not willing or able to accept patient if she is not currently under an EPC hold. I notified Dr. Vladimir Cueto and the charge nurse on the floor of the change of plans for patient. I recommended to Dr. Gilbert to have [facility] or [facility] come to assess patient and see if she still needs to be EPC'd at discharge. She said that she would consider this for Thursday. I am not in on Tuesday 01/23 so I shared all of the above information with CM- [employer]ar[employer] Ceci Kumar and CM Ivana Patino as well as wrote a weekend noted on my patients. Will reassess on Thursday if patient is still here.
--- NOTE | 2017-01-26 14:08 | NUR ---
Consult came in today to see about finding a care home home for patient. Dr. Rodrigues assessed patient and he does not feel she is a candidate for in patient rehab ([facility]). Patient is not able to make her own decisions at this time so I need to locate family to discuss placement options with them. The phone number listed on the chart for patient's mom Trudi is incorrect [phone]. I called that number and got a man who said he does not know Trudi and is not related to a Trudi. I looked through [facility] at patient's past records and found a phone number for a son Jose Rafael at [phone]. I attempted to call this number, but no one answered and there was not a voicemail available. I called the social work office at [place] and spoke to Renetta and she said they had [phone] listed for her mom Trudi. I called this number and was able to talk to Trudi as this was the correct number. Trudi sounded shocked on the phone when I said that I was calling about her daughter Adela, making me think that she did not know Adela was in the hospital. I explained to Trudi that I need to find care home placement for Adela and that Adela is not able to make this decision so I was looking for family who would be able to consent to her going to a care home facility. Trudi stated that she agrees to placement if that is what the doctor says is best for the patient. Per Trudi she states the patient would likely prefer a place in [place]. Trudi lives in [place]. Trudi said she would sign the admission papers if I find placement for the patient. I confirmed Trudi's number and will keep her updated on the progress I am making and how the patient is doing.
--- NOTE | 2017-01-26 17:04 | NUR ---
Is disoriented to place & time.Occasional visual hallucinations.Gets irritated at times wanting to go get a beer or wanting to go out and smoke.Is weak & unsteady.Up with 1-2 assists,belt,& walker.Eating fair today.Some shakiness at times.No c/o pain.Has slept at intervals.Alarms at all times.Did 15 min.checks today.Did pull out her IV earlier.
--- NOTE | 2017-01-27 04:23 | NUR ---
ADMIT 01/17 ETOH WITHDRAWL, AMS. PATIENT ON Q15MIN CHECKS, BED ALARM/TABS AT ALL TIMES, CAN BE VERY IMPULSIVE. POOR PO FLUID INTAKE, VERY POOR PO NUTRITIONAL INTAKE AND MUST BE ENCOURAGED TO EAT AND CUED FOR ALL MEALS, NO BM THIS SHIFT, UP TO THE BATHROOM W/FWW/GAITBELT AND I ASSIST AND IS VERY UNSTEADY, LFA PIV RUNNING NS@75ML/HR. PATIENT SLEPT MOST OF THE SHIFT AND IS ONLY ORIENTED TO HERSELF AND HAS REMOTE MEMORY PROBLEMS AND HALLUCINATES AT TIMES.
--- NOTE | 2017-01-27 12:17 | NUR ---
Additional information sent to [facility] for the ID screen. Contacted Shivani with [facility] regarding referral for patient to the two [facility] in [place] ([place] and [facility]). Shivani will help with placement options for patient. Information was faxed to Shivani at [phone]. Shivani will review the information and contact the admissions/social workers at the two [place] facilities. Shivani is planning on coming to [facility] on January 29 to assess patient. I also contacted Allie at [facility] in [place] and faxed all of patient's information to her at [phone]. Allie did call me back and [facility] has declined patient. I contacted Rea at [facility] and faxed patient's information to her at [phone]. Rea also called me back and they have declined patient. I contacted Elizabeth at [facility] in [place] and faxed her patient information at [phone]. Elizabeth states she has a bed available and will review the information and get back to me. At this time I have denials from [facility] and [facility] in . I am waiting to hear back from [facility], [facility], and [facility] in [place]. I met with patient this morning and discussed prison placement for her. She said that this is something she will have to think about. She was eating her lunch when I visited with her. Will continue to try and find placement for her.
--- NOTE | 2017-01-27 13:12 | NUR ---
STUDENT CHART CHECKED BY METAL ROOFING MECHANIC KARLEY COOPER RN BSN
--- NOTE | 2017-01-27 14:11 | NUR ---
Significant Event: Patient confused. + on delerium assessment. Patient was very agitated and restless early this morning when I took over her care. Seroquel 12.5 mg po given at 0700 which has helped a great deal. Patient has been much more calm/cooperative since. Therapy worked with patient a couple times this morning. Patient continues to be impulsive when trying to get up - ultra high fall risk. Bed alarm on at all times. Needs encouraged to eat/drink. Remains on 15 min checks - sheet on wall in room. Follow up: Continue CAM assessment and provide meds as needed per orders. Emotional support. 15 min checks.
--- NOTE | 2017-01-28 09:00 | NUR ---
A - NUTRITION F/U. NO NEW LABS. PT CONFUSED. REQUIRES CUES AT MEALS. EST NEEDS: 9511-9101 KCALS, 59-71 GM PROTEIN, 1 ML/KCAL FLUIDS. INTAKE 75-100% X 2 MEALS, REFUSED X 1. ENSURE COMPACT OFFERED TID. D - AT RISK W/ INADEQUATE ORAL INTAKE R/T DECREASED APPETITE AEB INTAKE RECORD. I - GOAL: 75% INTAKE BY DIMISSAL. M/E - CONT TO ENCOURAGE MEAL/SUPPLEMENT INTAKE.
--- NOTE | 2017-01-28 11:29 | NUR ---
STUDENT NURSE CHART CHECKED BY PLASMA TABLE OPERATOR KARLEY COOPER RN BSN
--- NOTE | 2017-01-28 16:23 | NUR ---
3051 received an email from [facility] patient's nurse yesterday stating she received a phone call last evening from patient's sister Columba Knott and Columba wants to speak to me. Columba's number is [phone]. Approximately 0810 today I received a phone call from Columba. She states that her mom, Trudi Lira contacted her and let her know that Adela is in the hospital here and Trudi told Columba that I had contacted her and asked about placement options for patient since she is not safe to discharge to home alone at this time. Columba asked if patient was in the state of needing a legal guardian and I advised her that if there is someone in the family who is willing to become her legal guardian, then I advised that they start looking into the process. Columba states she is willing to become her legal guardian, but she wanted to talk to her mom more about this. I informed Columba that what her mom told her is accurate, that we are looking at placement options for patient. Columba would like me to look in the [facility] or any towns [address] between [place] and [place] as she lives in [place] and comes to [place] about robel 4 weeks to visit her mom, [place] [address] through [place]. I told her that I would start looking at placement options in that area. I asked her if she would like one of the medical staff to contact her with information regarding patient's medical condition and she would appreciate that. At 0830 I met with Hazel Marlow APRN and informed her that Columba would like a call regarding patient. Dr. Gilbert is not in today and Dr. Reagan is covering for her. I voiced my concern with Dr. Reagan calling Columba since he does not know any of the background information with the patient. Hazel agreed but states she is not comfortable talking to the sister until she talks to Dr. Gilbert. Hazel will consult with Dr. Gilbert and Dr. Reagan and then let me know what she decides to do. At 1030 I contacted Shivani with [facility] through the [facility] and informed her that the sister would like to look at the [place] area. Shivani states they have a facility in [place] and this may be a good option for the family to consider. Shivani was going to contact her team and pass on the referral. Shivani states she will be here tomorrow to assess patient. At 1310 I met with Ceci Kumar, [place] Jail Officer and asked for guidance on the patient and steps the family needs to take if they want to become her legal guardian. Ceci and I discussed the fact that Columba had called and was wanting information on patient and that she stated to me her mom was the one who contacted her and let her know patient is in the hospital. Ceci and I agree that we have mom's consent to talk to Columba since mom, Trudi, gave Columba my phone number and information regarding patient hospital stay. Ceci and I also discussed that a physician needs to document it in the chart that it is advised that patient has a surrogate decision maker due to her degree of confusion at this point. With this said it is good to advise the family to look into the process for becoming legal guardian or medical POA for patient. At approximately 1330 I spoke to Hazel Marlow and she states that per Naomi Cazares in Risk Management we need to get Trudi lara's permission before Hazel calls Columba. I contacted Trudi at [phone] and she gave her verbal consent stating we are allowed to talk to Columba about patient and patient's medical condition. I shared this with Hazel and she was planning on calling Columba. At 1530 I recieved a call from Hazel stating she spoke to Columba and she has questions regarding the first steps to take to become patient's legal guardian. I called Columba at approximately 1600 and gave her the number for the Office of Public Guardian, Lilly Randall at [phone] and instructed her to call them as they will help her with the process. I did call Lilly before giving the number to Columba so she is expecting the families call. Will plan to meet with Shivani from [facility] tomorrow and continue to try and find placement for patient.
--- NOTE | 2017-01-28 17:32 | NUR ---
Is still really weak & unsteady.Uses walker & 1-2 assists.Disoriented.Can't follow directions at times.Can't seem to concentrate.Has slept alot.Voiding ok & had mod loose stool.
--- NOTE | 2017-01-29 04:50 | NUR ---
Significant Event: PT REMAINS DISORIENTED TO TIME/PLACE. Q15 MIN CHECKS. PIV L)FA IVF INFUSING. CAM/SAS PASSED THROUGHOUT SHIFT. NO PRN'S ADMINISTERED. OFFERED PT FOOD/DRINK THROUGHOUT SHIFT, REFUSED EVERY EFFORT TO EAT, BUT WILLINGLY SIPPED TEA A FEW TIMES. COOPERATIVE WITH CARES. BED ALARM ON AT LEVEL 2. PT GAIT UNSTEADY, USES FWW AND GAITBELT DURING AMBULATION. Follow up:
[2017-01-29 06:52] LABS: ANION GAP 11.2 (10.0-19.0); BLOOD UREA NITROGEN 3 mg/dL (6-24); CALCIUM 8.7 mg/dL (8.5-10.5); CHLORIDE 109 mMol/L (96-110); CO2 28 mMol/L (22-32); CREATININE 0.4 mg/dL (0.5-1.1); ESTIMATED GFR (MDRD EQUATION) > 60; POTASSIUM 3.2 mMol/L (3.7-5.1); SODIUM 145 mMol/L (135-145)
--- NOTE | 2017-01-29 12:24 | NUR ---
Phone call from Shivani with [facility] with Anselmo Yi. She has arrived at the hospital and is planning on visiting patient. I met with Shivani and patient. Patient told Shivani that she prefers to stay in the [place] area. Shivani did mention [place] to patient, but she said she would rather stay in [place] area. Patient was very pleasant while we visited. I checked the ID screen on [facility] and there are no new notes. I will contact [facility] and get an update on where they are with the ID screen. Will wait to hear back from Shivani regarding placement.
--- NOTE | 2017-01-29 14:30 | NUR ---
PT REFUSED SHOWER, STATES SHE HAD ONE DONE YESTERDAY AFTERNOON AT ABOUT 1630. JAYLIN GUPTAA
--- NOTE | 2017-01-29 16:54 | NUR ---
Significant Event: Patient at fair for breakfast and lunch. Did take pills but chewed 75% of them and then swallowed them even when put in pudding. Repositions self in bed. Took IV out this afternoon--stated it was bleeding and she must have bumped it on something. Will try to restart shortly prior to shift change. Follow up: Continue to monitor.
--- NOTE | 2017-01-30 03:54 | NUR ---
Significant Event: PATIENT REMAINS DISORIENTED TO TIME AND PLACE. REMAINS ON Q15 MINUTES CHECK. IV FLUIDS INFUSING IN LEFT FOREARM. OFFERED FOOD AND FLUIDS THROUGHTOUT THE SHIFT. PATIENT REFUSED EVENING MEAL. TAKEN SOME ENSURE. AMBULATED TO BR WITH 2 ASSIST WALKER AND GAITBELT, GAIT UNSTEADY. BED EXIT ALARM ON AT ALL TIMES. VOIDED X 1 GOOD AMOUNT. NO PRN;S ADMINISTERED. Follow up:
--- NOTE | 2017-01-30 10:56 | NUR ---
A - CONSULT RECEIVED D/T PCM & CALORIE COUNT. UNABLE TO DO CALORIE COUNT @ [facility]. BASED ON INTAKE RECORD PT IS UNABLE TO MEET NEEDS ORALLY. REFUSING MEALS. IS TAKING SOME ENSURE COMPACT. DISORIENTED - WERNICKE'S ENCEPHALOPATHY. / WT 87#, 01/14 WT 92# - DOWN 5# (5.4%) BMI 14.8 LABS: K+ 3.2, BUN/CR 3/0.4 MEDS: MEGACE, KCL, SEROQUEL, EFFEXOR, KEPPRA, PEPCID, FOLIC ACID, THIAMINE, MV, NAUSEA DIET: REG. INTAKE: REF-100%, AVG ~32% ENSURE COMPACT TID NEEDS: 4630-0245 KCAL, 59-71 G PRO D - SEVERE MALNUTRITION R/T INADEQUATE NUTRIENT INTAKE AEB INTAKE RECORD MEETING <50% OF NEEDS > 5 DAYS, 5.4% WT LOSS x 2 WEEKS. I - GOAL FOR NUTRIENT INTAKE TO MEET NEEDS. REC DOBHOFF PLACEMENT AND TWOCAL HN @ 70 ML/HR x 10 HRS W/ 225 ML WATER Q6 HRS TO PROVIDE 1400 KCAL, 58 G PRO, 1390 ML FREE WATER. WILL CONTINUE ENSURE COMPACT TID. WILL ADD ENSURE PUDDING TID. M/E - WILL MONITOR POC, INTAKE, WT F/U IN 2-4 DAYS.
--- NOTE | 2017-01-30 11:02 | NUR ---
PT IS UNABLE TO MEET NEEDS ORALLY. WT DOWN 5.4% SINCE ADMIT. REC DOBHOFF PLACEMENT AND TWOCAL HN @ 70 ML/HR x 10 HRS OVERNIGHT W/ 225 ML WATER Q6 HRS UNTIL ORAL INTAKE IMPROVES. WILL CONTINUE ORAL NUTRITION SUPPLEMENTS W/ MEALS.
--- NOTE | 2017-01-30 15:35 | NUR ---
Phone call from Citlalli Davidson, photographic engineer with [facility] approximately 0930 today stating she would like to come and assess patient today. Arranged for Citlalli to come at 1300. Citlalli arrived at 1245 and we met to go over patient information. I took Citlalli into patient's room and introduced her to Adela. I explained to Adela why Citlalli was here to visit with her and Adela agreed that she was willing to talk with Citlalli. Citlalli was left to assess patient and she stated she would call me if she had any further questions. Today I received phone calls from [facility] in [place], [facility] in [place], [facility] in [place] and they all have declined acceptance of patient. I faxed information to these SNF's also and I am waiting to hear back from them: [facility]- [facility] in [place] ([facility]), [facility], and [facility] in [place]. I also called Elizabeth at [facility] in [place] again to see if she reviewed patient's information. I am still waiting to hear back from her. I continue to wait to hear from Shivani with [facility] with the [facility] to see if she has been able to locate placement at one of their facilities. Will continue to look for placement for patient.
--- NOTE | 2017-01-30 15:53 | NUR ---
Significant Event: Pt c/o right sided chest pain, MD aware, started on a lidocaine patch to chest. Impulsive frequently this shift, sets of bed alarm. Is on a hi lo bed. 1-2 assist, unsteady. Appears slightly more oriented this shift but also disoriented at times. Mild tremors noted in bilaterial arms. Fair appetite but not drinking much. Follow up:
--- NOTE | 2017-01-31 04:00 | NUR ---
Significant Event:pt is oriented to self only, oriented to place at times. pt is impulsive, high low bed, bed alarm and 15 min checks. pt did have a "fall" this shift. pt got to the end of the bed and holding onto the foot of the bed lowered herself to the ground. pt was able to get back into bed w/ minimal assistance. no c/o pain. message left for pt's sister to call for an update, no word from her at this time. pt has iv to l wrist w/ ns @ 75ml/hr. pt is a 1 assist, encourage use of walker and definate gaitbelt. vss. pt c/o chest pain yesterday and had a lidoderm patch which pt removed at some point. Follow up:looking for placement
[2017-01-31 05:19] LABS: BASOPHIL % 0.5 %; EOSINOPHIL # 0.1 K/uL (0.0-0.5); EOSINOPHIL % 1.2 %; HEMATOCRIT 35.4 % (33.0-46.0); HEMOGLOBIN 11.7 g/dL (10.0-15.0); IMMATURE GRANULOCYTE % 0.2 %; LYMPHOCYTE % 53.9 %; MCH 33.3 pg (27.0-34.0); MCHC 33.1 gm/dL (32.0-36.5); MCV 100.9 fl (83.0-98.0); MONOCYTE # 0.7 K/uL (0.0-1.0); MONOCYTE % 11.6 %; MPV 10.7 fl (9.4-12.4); NEUTROPHIL # (ANC) 1.8 K/uL (1.8-7.8); NEUTROPHIL % 32.6 %; NRBC % 0 /100WBC (0-0.00); RBC 3.51 M/uL (3.50-5.50); RDW-CV 12.8 % (11.9-14.6); WBC 5.6 K/uL (4.0-11.0)
[2017-01-31 05:21] LABS: PLATELET COUNT 230 K/uL (150-450)
[2017-01-31 05:35] LABS: ALBUMIN 2.7 gm/dL (3.5-5.0); ANION GAP 11.6 (10.0-19.0); BLOOD UREA NITROGEN 6 mg/dL (6-24); CALCIUM 8.9 mg/dL (8.5-10.5); CHLORIDE 112 mMol/L (96-110); CO2 23 mMol/L (22-32); CREATININE 0.4 mg/dL (0.5-1.1); ESTIMATED GFR (MDRD EQUATION) > 60; PHOSPHORUS 3.1 mg/dL (2.5-4.9); POTASSIUM 3.6 mMol/L (3.7-5.1); SODIUM 143 mMol/L (135-145)
--- NOTE | 2017-01-31 17:50 | NUR ---
Significant event: Patient is alert to self. VSS. On room air. IV to left forearm with fluids. Has been a little impulsive today, moving from bed to chair, to couch, to bed, etc. Has ambulated to bathroom with one assist, gait belt, and walker. No falls today. Has eaten well today. Needs lots of encouragement to drink fluids. Continues on 15 minute checks. Has been cooperative with cares. Waiting for placement.
--- NOTE | 2017-02-01 04:52 | NUR ---
Significant Event:pt is oriented to self and sometimes place. pt is impulsive. high low bed w/ bed alarm on at all times. pt is a 1 assist w/ gaitbelt, and walker is she will use it. 15min checks. iv to l wrist has ns @75ml/hr. Follow up:
--- NOTE | 2017-02-01 11:46 | NUR ---
A - NUT F/U. ORIENTED TO SELF. IMPULSIVE. 15 MIN CHECKS. ENC TO DRINK FLUIDS. WT: 87# LABS: K+ 3.6, BUN/CR 6/0.4, ALB 2.7 MEDS: MEGACE, KCL, SEROQUEL, EFFEXOR, KEPPRA, PEPCID, FOLIC ACID, THIAMINE, MV DIET: REG. INTAKE: REF-100%, AVG ~56% ENSURE COMPACT TID, ENSURE PUDDING TID. INTAKE HAS IMPROVED. D - INADEQUATE NUTRIENT INTAKE R/T DECREASED APPETITE AEB INTAKE RECORD. I - GOAL FOR INTAKE 75% BY NEXT ASSESSMENT. WILL ADD MAGIC CUP @ AM & PM SNACKS. PT WOULD BENEFIT FROM SUPPLEMENTAL ENTERAL NUTRITION - CONTINUE TO REC TWOCAL HN @ 70 ML/HR x 10 HRS OVERNIGHT TO PROVIDE 1400 KCAL, 58 G PRO, 1390 ML FREE WATER W/ 225 ML WATER Q6 HRS. M/E - WILL MONITOR INTAKE. F/U IN 2-4 DAYS.
--- NOTE | 2017-02-01 11:49 | NUR ---
ORAL INTAKE IMPROVED HOWEVER PT WOULD BENEFIT FROM SUPPLEMENTAL ENTERAL NUTRITION. REC TWOCAL HN @ 70 ML/HR x 10 HRS OVERNIGHT W/ 225 ML WATER Q6 HRS.
--- NOTE | 2017-02-01 16:38 | NUR ---
Significant event: Patient is alert to self. VSS. On room air. IV to left wrist, saline locked this afternoon. May need to start again if not wanting to drink. Has eaten well today. Has been more alert, smiling, and able to answer more questions appropriately. Took shower today. Cooperative with cares.
--- NOTE | 2017-02-02 04:58 | NUR ---
Significant Event:PT IS ORIENTED TO SELF ONLY. IMPULSIVE BED ALARM ON AT ALL TIMES, HIGH LOW BED. PT HAS IV TO L WRIST SL BUT NEED TO ENCOURAGE PT W/ PO INTAKE. PT SLEPT WELL MOST OF THE NIGHT. Q 15 MIN CHECKS. VITALS Q SHIFT. T IS A 1 ASSIST W/ GAITBELT AND ENCURAGE USE OF WALKER. Follow up:
--- NOTE | 2017-02-02 12:55 | NUR ---
0900 Placed phone call to Elizabeth at [facility] in [place] to see if they are still looking at patient for possible placement there. Elizabeth said they are and asked me to fax over some updated information from the weekend. I did this and I also let her know that patient's sister, Columba Knott informed me that the family is moving forward with trying to get guardianship of patient. I also called Shivani Avalos patient liason with [facility] again to see if she has made any progress with one of her facilities accepting patient. She states that her facilities need to have guardianship in place and they also need to know what the families plan would be when patient no longer needs fdc care. I will contact Columba to see where they are in the guardianship process and see if the family has discussed future plans for Adela.
--- NOTE | 2017-02-02 14:17 | NUR ---
Met with Dr. Gilbert and DIDI Morales to discuss where I am at on finding placement for the patient. We discussed that patient does not have the capacity to make her own decisions at this time. I informed them that the family is working on setting up guardianship for patient, but until that is established I cannot find a SNF that is willing to accept patient. I met with patient at 1410 and I asked her where she was living before being admitted to the hospital. It took patient about 45 seconds to answer that she was in [place]. I then asked her where in [place] was she staying and again after about 30-45 seconds she said "first with my mom". I asked her where she went after she left her mom's and she was not able to tell me where she went saying she "did not know". I asked her if she was in a motel/hotel, as that is the reports we received and she said "no". I asked her if she thought she would be safe to discharge to home right now and if she would be able to care for herself and she responded "that is a hard one to answer". I then asked her if she were to discharge from the hospital where would she go. She spent about 30 seconds thinking and said again "that is a hard one, I don't know the answer to that one". She then said it would "depend on what my mom says". I asked her if it is still okay for me to talk to her mom and she said "oh yeah." I then asked if there was anyone else in the family I could or should talk to and she said "no I don't think so." I asked her if it is okay to talk to her sister Columba and she said "hmmm, I have to think about that, check with my mom." I shared my conversation with Adela with Dr. Gilbert and Alondra Smallwood. I will contact Adela's mom and sister to see where they are in the guardianship process.
--- NOTE | 2017-02-02 16:11 | NUR ---
Significant Event: Patient was disoriented x3 this am for the first assessment. This afternoon she was oriented to person and place but not time. Follows commands. Denies pain. Up with SBA, walker and gait belt. Encouraging oral intake and did very well. 15 minute checks-very high fall risk. Hi-low bed. Has fallen twice since being here. L)wrist IV, SL. Voiding adequately. Vital signs once a day. May go outside with help. Still working on placement. Cooperative with cares.
--- NOTE | 2017-02-03 03:30 | NUR ---
Significant Event: PT was oriented to person and place at begining of shift, but got more sleepy and disoriented as the shift went on. VSS on RA, only 1 assessment per shift. Up with SBA/gaitbelt/walker. IV to the L)wrist SL. Encourage PO intake. Could not find lidocaine patch for removal at 1930, charge nurse checked as well. Bed alarm on at all times. Follow Up: Possible discharge today, if placement works out.
[2017-02-03 06:04] LABS: ANION GAP 15.9 (10.0-19.0); BLOOD UREA NITROGEN 14 mg/dL (6-24); CALCIUM 8.9 mg/dL (8.5-10.5); CHLORIDE 111 mMol/L (96-110); CO2 19 mMol/L (22-32); CREATININE 0.5 mg/dL (0.5-1.1); ESTIMATED GFR (MDRD EQUATION) > 60; PHOSPHORUS 4.1 mg/dL (2.5-4.9); POTASSIUM 3.9 mMol/L (3.7-5.1); SODIUM 142 mMol/L (135-145)
--- NOTE | 2017-02-03 08:13 | NUR ---
found lidocaine patch on floor of pt. room.
--- NOTE | 2017-02-03 13:07 | NUR ---
Phone call at [phone] today from Nadira Neville, yarn dry room worker in [place], Trudi Lira and Tres Pankaj. Nadira states she is working with the [facility] on the temporary guardianship paperwork. She states that in order to proceed with the guardianship she needs a letter or documentation from the physician indicating that legal guardianship is recommended and why. Nadria's phone number is [phone] and her fax is [phone]. Her email is [email or web address]. Step father Tres Lira's phone number is [phone]. I spoke to Marianna Malone PA-C and Dr. Gilbert. They drafted a letter stating the need for immediate temporary and permanent guardianship for patient and I faxed that to Nadira at the above number. I instructed the family that patient will need her personal items (clothing) taken to her at [place] when she goes there. Her mom, Trudi asked that I look to see if patient's cell phone is here because they do not know how to get in touch with her old boyfriend and he would have access to all of patient's clothes. I checked in patient's room and asked her about her phone which she does not have. I called [facility] to see of they had her phone there or if they remembered patient coming in with it and they do not have it. I let Trudi know this. I have spoken to Elizabeth, EDDIE Admission coordinator and India DOZIER at [facility] regarding patient. They are planning on accepting her, but they need to have the temporary guardianship papers in place before patient arrives at their facility. Elizabeth also states that the patient does have Medicaid UHC, but they need to make sure she has straight/traditional Medicaid in place too as the UHC plan will only cover for skilled days at the SNF. I have asked Jayla with [facility] to look into the Medicaid issue for me. I will notify Elizabeth as soon as I have an answer on this. I will wait to hear back from Nadira regarding the temporary guardianship papers and we will then proceed with patient transferring to [facility] in [place].
--- NOTE | 2017-02-03 16:51 | NUR ---
Significant Event:PT. CONFUSED AND NOT PROCESSING WELL. FOLLOWS INSTRUCTIONS BUT FORGETS IN THE MIDDLE WHAT IS HAPPENING. EATING BY SELF AND VOIDS PER BR. UP WITH WALKER AND ONE ASSIST BUT IMPULSIVE. PLAN TO GO TO [facility] TOMORROW AFTER POWER OF STUDENT LIFE VICE PRESIDENT IS SENT TO THEM. IV LEFT WRIST S/L'D. FOUND LIDOCAINE PATCH BY TRASH CAN ON FLOOR IN PT ROOM. Follow up:
--- NOTE | 2017-02-04 03:04 | NUR ---
Significant Event: Patient alert and oriented to self and knows birthday. Disoriented to place and time. Thinks it is 2002. Answers some questions correctly, then just mumbles things that don't make sense other times. Artemio pain. Ate 50% of supper. Takes medications well. Vital signs ordered every 12 hours. 1PA with walker and gait belt to bathroom. Bed alarm on at all times. 15 minute checks. Impusive, and will get up without calling. Hoping to go to [facility] today. Was having trouble with wire threader and obtaining POA. Follow up: 15 min checks
--- NOTE | 2017-02-04 14:00 | NUR ---
Phone call and email to Nadira Neville, contracts attorney in [place] this morning at 0815 asking her to call me with an update on the status of the temporary guardianship papers. Phone call from Nadira at 1020 stating she is completing the papers this morning and [facility]. It is possible that they will be signed by this afternoon, but Nadira states it is not likely. She does feel that we will have them by Thursday and will be able to proceed with a discharge to [facility] in [place] yet this week. Nadira will email me all the documents once signed. Once I recieve these I will contact Elizabeth at [place] and set up a transfer. Dr. Gilbert has been updated on the status.
--- NOTE | 2017-02-04 15:10 | NUR ---
Phone call from Elizabeth at [facility] in [place]. Her technology administrator states that they will accept patient tomorrow at 1200. They are comfortable accepting patient knowing the immigration attorney is working on the temporary guardianship paperwork. I will fax the documents to Elizabeth as soon as I get them from the immigration attorney. I notified Dr. Gilbert and the nursing staff on the floor of the 1200 discharge tomorrow. I spoke with Adela and informed her that she will be going to [place] tomorrow. She is in agreement of this plan. I also called Trudi, patient's mom and notified her of the discharge plan. I emailed the immigration attorney Nadira Neville and let her know of the plan too. Packet is started and ID Screen is in the packet.
--- NOTE | 2017-02-04 17:27 | NUR ---
Is alert but disoriented to time & place.Has been amb with walker & 1 assist.Unsteady on feet.Went to gym with PT personel.No c/o pain.Needs encouragement to eat.Is to go to [facility] home tomorrow at noon.
--- NOTE | 2017-02-05 05:09 | NUR ---
Significant Event: ALERT TO PERSON NO PLACE OR SITUATION. NO IV. ALARMS ON AT ALL TIMES. 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 SHE RESTED PEACEFULLY THE REST OF THE SHIFT. VITAL SIGHNS QV 12 HOURS. AMBULATES WITH ONE ASSIST GAIT BELT WALKER IN HALLS AND TO BATHROOM. CAN BE IMPUSIVE AT TIMES. IS SHEDULED TO TRANSFER TO [facility] THIS AM. Follow up:
--- NOTE | 2017-02-05 11:53 | NUR ---
Spoke with Elizabeth at [facility] in [place] today. I let her know that the Temporary Guardianship paperwork came late yesterday. I faxed this to her along with the patient's discharge orders. I also provided patient with a pair of leggings, tshirt, sweatshirt, socks, 2 pair of underwear, and a pair of slippers. I gave TIERNEY Estes the nurse to nurse number and asked her to call Mason with her report. Patient will discharge to [place] today at 1200.
--- NOTE | 2017-02-05 12:41 | NUR ---
Pt.is alert & most of the time knows her birthday but disoriented to time & place.Gets anxious at times. At times will have some visual hallucinations. Thought process is limited. Can't seem to concentrate. Is up with walker & 1 assist. Does not track well. Is shakey & unsteady on feet. Weak.Eating & drinking fairly well.Voiding ok,no stools yet today.
--- NOTE | 2017-02-05 13:50 | NUR ---
WAS DISMISSED PER W/C TO VAN ACCOMPANIED BY FELT HAT FLANGING OPERATOR TO TAKE TO [facility].TRANSFER PAPERS WERE SENT WITH F[employer]T [employer] FLANGING OPERATOR.NURSE TO NURSE REPORT WAS GIVEN OVER THE PHONE AT 1350 TO DIANA MCKENNA AT [facility].
== END 2017-02-05 13:50 | DRG 896 ==
LOC: GMED 10:35 → GMSU 12:06
PROVIDERS: Family Medicine; Internal Medicine; Nurse Practitioner Family; Physician Assistant; ADMIT Internal Medicine
DX: F10.239 Alcohol dependence with withdrawal, unspecified (principal); E43 Unspecified severe protein-calorie malnutrition; R45.851 Suicidal ideations; E51.2 Wernicke's encephalopathy; E83.39 Other disorders of phosphorus metabolism; E86.0 Dehydration; R26.9 Unspecified abnormalities of gait and mobility; E87.6 Hypokalemia; F32.9 Major depressive disorder, single episode, unspecified; F43.9 Reaction to severe stress, unspecified; G40.909 Epilepsy, unspecified, not intractable, without status epilepticus; R29.898 Other symptoms and signs involving the musculoskeletal system
CPT/HCPCS: G0378; G0480; G8978; G8979; G8980; G8981; G8982; G8983; J1650; J3411; J3475; J3480; J7030; J7040; J7042; J7050